=== PATIENT | female | born 1950 ===

== ENCOUNTER 2016-05-21 17:48 | Outpatient (CLI) | payer MEDICARE ==
[2016-05-21 19:17] LABS: Anion Gap 14 mmol/L (10-20); BUN (Urea Nitrogen) 14 mg/dL (9.8-20.1); Calc. Creatinine Clearance 0 mL/min (70-130); Calcium 9.7 mg/dL (7.8-10.44); Carbon Dioxide 32 mmol/L (23-31); Chloride 97 mmol/L (98-107); Estimated GFR-MDRD 83
== END 2016-05-21 17:49 | disposition home or self-care (01) ==
LOC: NAV SJFMSP 17:48
PROVIDERS: ATTEND Family Medicine
DX: I10 Essential (primary) hypertension (principal)
CPT/HCPCS: 80048